=== PATIENT | male | born 1985 | race African-American/Black ===

== ENCOUNTER 2018-05-10 03:43 | Emergency (ER) | payer SELFPAY ==
[~2018-05-10] VITALS: Ht 177.8 cm; Wt 82.0 kg
[2018-05-10 03:45] VITALS: BP 132/92
[2018-05-10] MEDS ORDERED: ONDANSETRON HCL 4MG/2ML INJ IV STA (08:24)
[2018-05-10] MEDS ORDERED: KETOROLAC 30MG/ML VIAL IV STA (08:24)
[2018-05-10] MEDS ORDERED: SODIUM CHLORIDE 0.9% 1,000 ML IV ONE (08:24)
[2018-05-10 09:06] LABS: CLARITY URINE CLEAR (CLEAR); COLOR URINE YELLOW (YELLOW); KETONES URINE NEGATIVE (NEGATIVE); LEUKOCYTE ESTERASE URINE NEGATIVE (NEGATIVE); NITRITE URINE NEGATIVE (NEGATIVE); OCCULT BLOOD URINE NEGATIVE (NEGATIVE); PROTEIN URINE NEGATIVE (NEGATIVE); SPECIFIC GRAVITY URINE 1.015 (1.005-1.030); UROBILINOGEN URINE 0.2 E.U./dL (0.2-1.0)
[2018-05-10 09:52] LABS: *AMPHETAMINES SCREEN URINE NEGATIVE (NEGATIVE); *BARBITURATES SCREEN URINE NEGATIVE (NEGATIVE)
[2018-05-10 09:53] LABS: *BENZODIAZEPINES SCREEN URINE NEGATIVE (NEGATIVE); *COCAINE SCREEN URINE NEGATIVE (NEGATIVE); CANNABINOID URINE SCREEN NEGATIVE (NEGATIVE); METHADONE URINE SCREEN NEGATIVE (NEGATIVE); OPIATES URINE SCREEN NEGATIVE (NEGATIVE); PHENCYCLIDINE URINE SCREEN NEGATIVE (NEGATIVE)
[2018-05-10] MEDS ORDERED: ACETAMINOPHEN 325MG TABLET PO ONE (10:00)
== END 2018-05-10 11:00 | disposition home or self-care (01) ==
LOC: ER 03:43
DX: R10.13 Epigastric pain (principal); M54.12 Radiculopathy, cervical region
CPT/HCPCS: 80305; 99283; J7030